=== PATIENT | female | born 1975 | race Hispanic/Latino ===

== ENCOUNTER 2017-10-22 12:52 | Emergency (ER) | payer BC ==
[2017-10-22 13:30] LABS: BASOPHILS % (AUTO) 1.1 % (0.0-5.0); EOSINOPHILS % (AUTO) 0.5 % (0.0-8.0); HEMATOCRIT 42.2 % (36-48); LYMPHOCYTES % (AUTO) 23.5 % (21.0-51.0); MEAN CORPUSCULAR HEMOGLOBIN 30.7 pg (27.0-33.0); MEAN CORPUSCULAR HGB CONC 34.5 g/dL (32.0-36.0); MONOCYTES % (AUTO) 7.9 % (3.0-13.0); PLATELET COUNT (AUTO) 178 K/uL (130-400); RED BLOOD CELL COUNT(AUTO) 4.74 MIL/uL (4.00-5.50); RED CELL DISTRIBUTION WIDTH 13.5 % (11.0-15.5); WHITE BLOOD COUNT (AUTO) 8.6 K/uL (4.8-10.8)
[2017-10-22 13:51] LABS: CREATININE 0.9 mg/dL (0.5-1.5); POTASSIUM 4.2 mmol/L (3.5-5.1)
[2017-10-22 13:56] LABS: ALBUMIN 4.1 g/dL (3.5-5.0); BILIRUBIN,TOTAL 0.6 mg/dL (0.2-1.0); TOTAL PROTEIN, SERUM 7.6 g/dL (6.0-8.3)
[2017-10-22 14:08] LABS: APPEARANCE,URINE Clear (CLEAR); BILIRUBIN,URINE Negative (NEGATIVE); COLOR,URINE Yellow (YELLOW); GLUCOSE, URINE (UA) Negative (NEGATIVE); KETONES,URINE Negative (NEGATIVE); LEUKOCYTE ESTERASE ,URINE Negative (NEGATIVE); NITRATE,URINE Negative (NEGATIVE); OCCULT BLOOD,URINE Nonhemolyzed Trace (NEGATIVE); PROTEIN,URINE Negative (NEGATIVE)
[2017-10-22 14:09] LABS: HCG,QUAL RESULT NEGATIVE (NEGATIVE)
[2017-10-22 14:14] LABS: BACTERIA,URINE Rare /HPF (None Seen); WBC,URINE 0-1 /HPF (0-1)
[2017-10-22 14:15] LABS: MUCUS,URINE Few LPF (None Seen); SQUAMOUS EPITHELIAL CELL,UR Rare /HPF (0-2)
== END 2017-10-22 15:14 | disposition home or self-care (01) ==
LOC: EDH 12:52
DX: R10.31 Right lower quadrant pain (principal); Z98.51 Tubal ligation status; Z72.0 Tobacco use
CPT/HCPCS: 36415; 80053; 81001; 81025; 83690; 85025

== ENCOUNTER 2021-08-14 13:20 | Observation (INO) | payer BC ==
[~2021-08-14] VITALS: Ht 157.5 cm; Wt 72.4 kg
[2021-08-14] VITALS (19 sets, daily range): BP systolic 113–158; BP diastolic 52–95
[2021-08-14 13:58] LABS: BASOPHILS % (AUTO) 0.2 % (0.0-5.0); EOSINOPHILS % (AUTO) 0.5 % (0.0-8.0); HEMATOCRIT 45.1 % (36-48); LYMPHOCYTES % (AUTO) 14.3 % (21.0-51.0); MEAN CORPUSCULAR HEMOGLOBIN 29.5 pg (27.0-33.0); MEAN CORPUSCULAR HGB CONC 32.8 g/dL (32.0-36.0); MONOCYTES % (AUTO) 5.4 % (3.0-13.0); NEUTROPHILS % (AUTO) 78.9 % (40.0-77.0); PLATELET COUNT (AUTO) 202 K/uL (130-400); RED BLOOD CELL COUNT(AUTO) 5.01 MIL/uL (4.00-5.50); RED CELL DISTRIBUTION WIDTH 13.2 % (11.0-15.5); WHITE BLOOD COUNT (AUTO) 12.2 K/uL (4.8-10.8)
[2021-08-14] MEDS ORDERED: ONDANSETRON 4MG INJ IVP ONE (14:00)
[2021-08-14] MEDS ORDERED: MORPHINE 4 MG SYG IVP ONE (14:00)
[2021-08-14 14:07] LABS: APPEARANCE,URINE Clear (CLEAR); BILIRUBIN,URINE Negative (NEGATIVE); COLOR,URINE Yellow (YELLOW); GLUCOSE, URINE (UA) Negative (NEGATIVE); KETONES,URINE Negative (NEGATIVE); LEUKOCYTE ESTERASE ,URINE Small (NEGATIVE); NITRATE,URINE Negative (NEGATIVE); OCCULT BLOOD,URINE Moderate (NEGATIVE); PROTEIN,URINE Trace mg/dL (NEGATIVE); UROBILINOGEN,URINE 0.2 mg/dL (0.2-1.0)
[2021-08-14 14:08] LABS: CREATININE 1.1 mg/dL (0.5-1.5)
[2021-08-14 14:11] LABS: ALBUMIN 4.3 g/dL (3.5-5.0); BILIRUBIN,TOTAL 0.4 mg/dL (0.2-1.0)
[2021-08-14 14:13] LABS: HCG,QUAL RESULT NEGATIVE (NEGATIVE)
[2021-08-14 14:32] LABS: BACTERIA,URINE Rare /HPF (None Seen); RBC,URINE 0-1 /HPF (0-1); SQUAMOUS EPITHELIAL CELL,UR Rare /HPF (0-2)
[2021-08-14] MEDS ORDERED: KETOROLAC 15MG/ML VIAL (15MG/ML) IV PRN (16:00)
[2021-08-14] MEDS ORDERED: 0.9%NACL 1000ML 1,000 ML IV ONE (16:00)
[2021-08-14] MEDS ORDERED: CEFTRIAXONE 1G VIAL IVP ONE (16:00)
[2021-08-14] MEDS ORDERED: IOHEXOL-350 50ML VIAL IV ONE (17:06)
[2021-08-14] MEDS ORDERED: CEFTRIAXONE 1G VIAL ONE (17:10)
[2021-08-14] MEDS ORDERED: SUCCINYLCHOLINE 200MG/10ML SYR ONE (18:32)
[2021-08-14] MEDS ORDERED: LIDOCAINE PF 100MG/5ML (2%) SYRINGE 5ML ONE (18:32)
[2021-08-14] MEDS ORDERED: ROCURONIUM 10MG/1ML SYR 10 MG/ML ML ONE (18:32)
[2021-08-14] MEDS ORDERED: MIDAZOLAM HCL 1 MG/ML 2ML VIAL ONE (18:32)
[2021-08-14] MEDS ORDERED: PROPOFOL 10 MG/ML 20ML VIAL IV ONE (18:32)
[2021-08-14] MEDS ORDERED: FENTANYL CITRATE PF 50 MCG/1 ML 2ML VIAL ONE (18:33)
[2021-08-14] MEDS ORDERED: EPHEDRINE SULFATE 50 MG/ML AMPULE ONE (19:29)
[2021-08-14] MEDS ORDERED: HYDROCODONE/ACETAMINOPHEN 5/325 MG TAB PO PRN (23:00)
[2021-08-14] MEDS ORDERED: ONDANSETRON 4MG INJ IVP PRN (23:00)
[2021-08-14] MEDS ORDERED: ACETAMINOPHEN 325 MG TAB PO PRN (23:00)
[2021-08-15 04:15] VITALS: BP 120/51
[2021-08-15 08:00] VITALS: BP 118/62
[2021-08-15] MEDS ORDERED: TAMSULOSIN HCL 0.4 MG CAP.ER.24H PO SCH (09:00)
[2021-08-15 12:00] VITALS: BP 132/73
== END 2021-08-15 14:45 | disposition home or self-care (01) ==
LOC: EDH 13:20 → EDHIP 15:50 → 3BH 20:59
PROVIDERS: ADMIT Urology; ATTEND Urology
DX: N13.2 Hydronephrosis with renal and ureteral calculous obstruction (principal); Z20.822 Contact with and (suspected) exposure to COVID-19; E66.9 Obesity, unspecified
CPT/HCPCS: 36415; 52356; 74018; 74176; 80053; 81001; 81025; 82360; 85025; 87635; 96365; 96375; 99284; G0378 ×21; J0330; J0696; J2001; J2250; J2270; J2405; J2704; J3010; J3490; J1885; Q9967